=== PATIENT | female | born 1985 | race African-American/Black ===

== ENCOUNTER 2023-05-11 12:07 | Emergency (ER) | payer MEDICAID, SELFPAY ==
[2023-05-11 12:09] VITALS: BP 104/64; PULSE 94; RESP 18; O2SAT 100
--- NOTE | 2023-05-11 12:24 | ED.HA ---
HPI - Headache General Chief Complaint: Headache Stated Complaint: headache Time Seen by Provider: 05/11/23 12:24 History of Present Illness HPI Narrative: Patient is a 37-year-old female , approximately 16 weeks by last menstrual. Here with a headache. She states that she has a history of headaches in the past, has seen a neurologist for them in the past and was told she has migraines. She notes that this current headache has been present for about 1 month. the headache is frontal in nature and has no associated vision changes, light sensitivity, numbness or weakness in arms or legs, confusion. She states she has been using some paracetamol/ acetaminophen at home with some improvement of symptoms seems to only be taking this once or twice a day. She notes that she recently moved to this area from [place] school and does not have an established PCP or OBGYN. She did check in at the [facility] today and they advised her to come to the emergency department for evaluation of her headache prior to being seen there and establishing with an OBGYN. She denies any abdominal pain, pelvic cramping, vaginal bleeding or discharge. No urinary symptoms. No fever or chills. No recent trauma. Related Data Allergies Allergy/AdvReac Type Severity Reaction Status Date / Time No Known Allergies Allergy Verified 05/11/23 12:26 Review of Systems Review of Systems: All systems reviewed & are unremarkable except as noted in HPI and below Exam Narrative: GENERAL: Well-appearing, well-nourished, and in no acute distress. HEAD: Normocephalic, atraumatic. EYES: PERRLA and EOMI. ENT: Nares clear. Mucous membranes moist. NECK: Supple. CHEST: Clear to auscultation. No respiratory distress. HEART: Regular rate and rhythm. Normal peripheral pulses. ABDOMEN: Soft, nontender, nondistended. EXTREMITIES: Normal range of motion. No edema. SKIN: Warm, dry, no rash. NEURO: No focal deficits. Alert and oriented x3. No upper lower extremity drift, no facial droop, no sensory deficits in extremities or face, no visual field deficits, normal [id number]. Ambulates a steady gait. PSYCH: Normal mood and affect. Course Course Emergency Course: Chart review performed. Here with headache x 1 month. Triage vitals grossly normal. No prior ED visits. Patient seen evaluated, normal neurological exam. Offered Tylenol for headache. We did discuss risks versus benefits of his brain imaging with a CT scan, will defer at this time given normal neurologic exam history of headaches in the context of avoiding radiation due to her . We will refer her to Dr. Brown's office for a PCP. She plans to establish with [facility] for her OBGYN needs. She is advised to return to the ED or go to the [facility] she develops any related symptoms. The results of pertinent diagnostic studies and exam findings were discussed. The patient?s provisional diagnosis and plan of care were discussed with the patient and present family. The patient and/or present family expressed understanding of the diagnosis and plan. The nurse was instructed to provide written instructions and appropriate follow-up information. The patient understands their need and responsibility to obtain additional follow-up as instructed. The risks of medications administered and prescribed were discussed with the patient and family present. Vital Signs Vital signs: Vital Signs Pulse Rate 94 05/11/23 12:09 Respiratory Rate 18 05/11/23 12:09 Blood Pressure 104/64 05/11/23 12:09 Pulse Oximetry 100 05/11/23 12:09 Pulse Rate 94 05/11/23 12:09 Respiratory Rate 18 05/11/23 12:09 Blood Pressure 104/64 05/11/23 12:09 Pulse Oximetry 100 05/11/23 12:09 Discharge Plan Discharge Clinical Impression: Headache Qualifiers: Headache type: unspecified Headache chronicity pattern: chronic headache Intractability
[2023-05-11] MEDS: ACETAMINOPHEN 500 MG TABLET 1000 MG PO (12:50)
[2023-05-11 13:11] VITALS: BP 106/69; PULSE 85; RESP 15; O2SAT 99
== END 2023-05-11 13:13 | disposition home or self-care (01) ==
LOC: ANHED 12:53
PROVIDERS: Emergency Provider Student in an Organized Health Care Education/Training Program
DX: O99.891 Other specified diseases and conditions complicating pregnancy (principal); R51.9 Headache, unspecified; Z3A.16 16 weeks gestation of pregnancy
CPT/HCPCS: 99283; A9270